=== PATIENT | female | born 1975 | race Caucasian/White ===

== ENCOUNTER 2017-04-18 11:57 | Inpatient (IN) | payer OTHER ==
[~2017-04-18] VITALS: Ht 180.3 cm; Wt 108.8 kg
[~2017-04-18 11:57] MED LIST: DULERA 100 MCG/13 GM IH; FLEXERIL10 MG PO; HYDROCODON-ACE1 EAC7 PO; NAPROSYN500 MG PO; OMEGA-3 PO; PRILOSEC20 MG PO; ULTRAM50 MG PO; VALIUM5 MG PO; ZOFRAN ODT4 MG PO; fish oil PO
[2017-04-18 13:00] LABS: BASOPHIL COUNT 0.1 K/uL (0-0.1); EOSINOPHIL (%) 0.4 % (0-5); EOSINOPHIL COUNT 0.1 K/uL (0-0.3); IMMATURE GRANULOCYTE (%) 0.6 % (0.0-0.7); IMMATURE GRANULOCYTE COUNT 0.1 K/uL; LYMPHOCYTE COUNT 1.8 K/uL (1.0-2.8); MCH 30.6 PG (29.0-34.0); MCHC 33.5 G/DL (30.0-36.0); MCV 91.3 FL (83-99); MEAN PLAT.VOLUME 10.8 uM^3 (9.5-12.4); MONOCYTE COUNT 1.1 K/uL (0-0.8); NEUTROPHIL (%) 82.5 % (45-76); PLATELET COUNT 221 K/uL (156-360); RBC DIS.WIDTH-CV 13.7 % (11.8-14.6); RBC DIS.WIDTH-SD 45.9 % (39-53); RED BLOOD COUNT 5.04 M/uL (3.80-5.20); WHITE BLOOD COUNT 18.2 K/uL (4.1-10.2)
[2017-04-18 13:09] LABS: CHLORIDE 105 mEq/L (99-109); POTASSIUM 4.2 mEq/L (3.7-5.4); SODIUM 136 mEq/L (136-147)
[2017-04-18 13:10] LABS: GLUCOSE 123 mg/dL (70-99)
[2017-04-18 13:12] LABS: ANION GAP 8 MEQ/L (2-14)
[2017-04-18 13:14] LABS: GFR ESTIMATE (CALCULATED) 58 mL/min/
[2017-04-18 13:15] LABS: UREA NITROGEN (BUN) 10 mg/dL (9-23)
[2017-04-18] MEDS ORDERED: PRAVACHOL10 MG PO (15:28)
[2017-04-18] MEDS ORDERED: AMITRIPTYLINE H10 MG PO (15:29)
[2017-04-18] MEDS ORDERED: TRAMADOL HCL50 MG PO (15:29)
[2017-04-18 15:52] LABS: TOTAL BILIRUBIN 0.9 mg/dL (0.0-1.0)
[2017-04-18 15:53] LABS: ALKALINE PHOSPHATASE 121 IU/L (3-129)
[2017-04-18 15:56] LABS: DIRECT BILIRUBIN 0.3 mg/dL (0.0-0.3)
[2017-04-18 15:59] LABS: ADD MIUA? NO; BILIRUBIN NEGATIVE; BLOOD NEGATIVE; COLOR STRAW ((YELLOW)); GLUCOSE (STRIP) NEGATIVE; KETONES NEGATIVE; LEUKOCYTES NEGATIVE; NITRITE NEGATIVE; PROTEIN (STRIP) NEGATIVE; SPECIFIC GRAVITY 1.005 (1.000-1.030); UROBILINOGEN 0.2 MG/DL (0.2-1.0)
[2017-04-18 17:17] LABS: UCUL ADDED? NO
[2017-04-18 20:41] VITALS: BP 124/70
[2017-04-18 20:58] VITALS: BP 124/70
[2017-04-18 21:00] VITALS: BP 100/59
[2017-04-18 22:00] VITALS: BP 113/69
[2017-04-18 22:27] LABS: METH RESISTANT S AUREUS PCR NEGATIVE (NEGATIVE)
[2017-04-18 22:28] LABS: PROBE CHECK PASS; SPECIMEN PROCESSING CONTROL PASS
[2017-04-18 23:00] VITALS: BP 117/66
[2017-04-19] VITALS (14 sets, daily range): BP systolic 84–124; BP diastolic 43–74
[2017-04-19 06:17] LABS: BASOPHIL COUNT 0.1 K/uL (0-0.1); EOSINOPHIL (%) 0.5 % (0-5); EOSINOPHIL COUNT 0.1 K/uL (0-0.3); HEMATOCRIT 36.7 % (36.0-46.0); IMMATURE GRANULOCYTE (%) 0.4 % (0.0-0.7); IMMATURE GRANULOCYTE COUNT 0.1 K/uL; INSTRUMENT ABS NEUTROPHIL CT 8.8 K/uL; LYMPHOCYTE COUNT 3.3 K/uL (1.0-2.8); MCH 31.4 PG (29.0-34.0); MEAN PLAT.VOLUME 10.6 uM^3 (9.5-12.4); MONOCYTE (%) 4.9 % (3-12); MONOCYTE COUNT 0.6 K/uL (0-0.8); NEUTROPHIL COUNT 8.8 K/uL (1.8-6.4); PLATELET COUNT 177 K/uL (156-360); RBC DIS.WIDTH-CV 14.1 % (11.8-14.6); RBC DIS.WIDTH-SD 49.1 % (39-53); WHITE BLOOD COUNT 12.9 K/uL (4.1-10.2)
[2017-04-19 06:18] LABS: MCV 95.3 FL (83-99); RED BLOOD COUNT 3.85 M/uL (3.80-5.20)
[2017-04-19 06:23] LABS: ALKALINE PHOSPHATASE 78 IU/L (3-129); ANION GAP 4 MEQ/L (2-14); CHLORIDE 111 MEQ/L (99-109); GFR ESTIMATE (CALCULATED) > 59 mL/min/; GLUCOSE 93 mg/dL (70-99); MAGNESIUM 1.7 mg/dl (1.3-2.7); POTASSIUM 4.2 MEQ/L (3.7-5.4); SAMPLE HEMOLYSIS CHECK 0; SAMPLE ICTERIC CHECK 0; SAMPLE LIPEMIA CHECK 0; SODIUM 140 MEQ/L (136-147); TOTAL BILIRUBIN 0.9 MG/DL (0.0-1.0); UREA NITROGEN (BUN) 9 mg/dL (9-23)
[2017-04-19 07:27] LABS: ERTH.SED.RATE 24 MM/HR (0-20)
[2017-04-20 07:40] VITALS: BP 145/82
[2017-04-20 10:35] LABS: EOSINOPHIL (%) 1.7 % (0-5); EOSINOPHIL COUNT 0.2 K/uL (0-0.3); HEMATOCRIT 36.5 % (36.0-46.0); IMMATURE GRANULOCYTE (%) 0.7 % (0.0-0.7); IMMATURE GRANULOCYTE COUNT 0.1 K/uL; INSTRUMENT ABS NEUTROPHIL CT 5.5 K/uL; LYMPHOCYTE COUNT 2.5 K/uL (1.0-2.8); MCH 31.1 PG (29.0-34.0); MCHC 33.4 G/DL (30.0-36.0); MCV 93.1 FL (83-99); MEAN PLAT.VOLUME 10.8 uM^3 (9.5-12.4); MONOCYTE (%) 5.8 % (3-12); MONOCYTE COUNT 0.5 K/uL (0-0.8); NEUTROPHIL (%) 62.5 % (45-76); NEUTROPHIL COUNT 5.5 K/uL (1.8-6.4); PLATELET COUNT 177 K/uL (156-360); RBC DIS.WIDTH-CV 13.5 % (11.8-14.6); RBC DIS.WIDTH-SD 46.2 % (39-53); RED BLOOD COUNT 3.92 M/uL (3.80-5.20); WHITE BLOOD COUNT 8.7 K/uL (4.1-10.2)
[2017-04-20 11:00] LABS: ANION GAP 5 MEQ/L (2-14); CHLORIDE 108 MEQ/L (99-109); GFR ESTIMATE (CALCULATED) > 59 mL/min/; GLUCOSE 112 mg/dL (70-99); POTASSIUM 3.9 MEQ/L (3.7-5.4); SAMPLE HEMOLYSIS CHECK 0; SAMPLE ICTERIC CHECK 0; SAMPLE LIPEMIA CHECK 0; SODIUM 140 MEQ/L (136-147); UREA NITROGEN (BUN) 8 mg/dL (9-23)
[2017-04-20 15:25] VITALS: BP 153/80
[2017-04-21] VITALS: BP 111/57
[2017-04-21 06:43] LABS: EOSINOPHIL (%) 2.3 % (0-5); EOSINOPHIL COUNT 0.2 K/uL (0-0.3); HEMATOCRIT 37.9 % (36.0-46.0); IMMATURE GRANULOCYTE (%) 0.4 % (0.0-0.7); INSTRUMENT ABS NEUTROPHIL CT 3.9 K/uL; LYMPHOCYTE COUNT 2.4 K/uL (1.0-2.8); MCHC 33.5 G/DL (30.0-36.0); MCV 92.4 FL (83-99); MEAN PLAT.VOLUME 10.6 uM^3 (9.5-12.4); MONOCYTE (%) 5.8 % (3-12); MONOCYTE COUNT 0.4 K/uL (0-0.8); NEUTROPHIL COUNT 3.9 K/uL (1.8-6.4); PLATELET COUNT 188 K/uL (156-360); RBC DIS.WIDTH-CV 13.4 % (11.8-14.6); RBC DIS.WIDTH-SD 45.7 % (39-53); WHITE BLOOD COUNT 6.9 K/uL (4.1-10.2)
[2017-04-21 07:08] LABS: ANION GAP 8 MEQ/L (2-14); CHLORIDE 106 MEQ/L (99-109); GFR ESTIMATE (CALCULATED) > 59 mL/min/; GLUCOSE 99 mg/dL (70-99); POTASSIUM 3.7 MEQ/L (3.7-5.4); SAMPLE HEMOLYSIS CHECK 0; SAMPLE ICTERIC CHECK 0; SAMPLE LIPEMIA CHECK 0; SODIUM 142 MEQ/L (136-147); UREA NITROGEN (BUN) 10 mg/dL (9-23)
[2017-04-21 08:19] VITALS: BP 103/57
[2017-04-21] MEDS ORDERED: CEPHALEXIN500 MG PO (15:30)
== END 2017-04-21 16:10 | disposition home or self-care (01) | DRG 871 ==
LOC: EME 11:57 → EDOF 14:58 → 5SOUTH 14:58 → ENRESERV 15:03 → CANRESERV 15:03 → EDOF 15:23 → ENRESERV 15:24 → CANRESERV 15:24 → EDOF 16:49 → ENRESERV 16:56 → 4WEST 20:43 → ENRESERV 04-19 08:52 → 5SOUTH 04-19 10:05
PROVIDERS: Internal Medicine; Internal Medicine Critical Care Medicine; Physician Assistant
DX: A41.9 Sepsis, unspecified organism (principal); R65.21 Severe sepsis with septic shock; E87.2 Acidosis; L03.116 Cellulitis of left lower limb; J98.11 Atelectasis; R09.02 Hypoxemia; F17.210 Nicotine dependence, cigarettes, uncomplicated; E78.5 Hyperlipidemia, unspecified; L02.224 Furuncle of groin; Z91.048 Other nonmedicinal substance allergy status; L08.9 Local infection of the skin and subcutaneous tissue, unspecified; N61.1 Abscess of the breast and nipple; R73.03 Prediabetes; Z82.49 Family history of ischemic heart disease and other diseases of the circulatory system; Z87.442 Personal history of urinary calculi; Z88.0 Allergy status to penicillin; Z90.710 Acquired absence of both cervix and uterus; Z88.2 Allergy status to sulfonamides
CPT/HCPCS: 71020; 73590; 80048; 80053; 80076; 80202; 81003; 82533 91; 83605; 83735; 85025; 85025 91; 85610; 85651; 87040; 87070; 87205; 87641; 90686; 93971; 94799; 99281; 99285; J0690; J0696; J1650; J2060; J2270; J2405; J3370; J7030; J7050

== ENCOUNTER → 2017-08-30 | Outpatient (CLI) | payer OTHER ==
[~2017-08-30] MED LIST changes: +AMITRIPTYLINE H10 MG PO; +CEPHALEXIN500 MG PO; +PRAVACHOL10 MG PO; +TRAMADOL HCL50 MG PO
== END | disposition home or self-care (01) ==
LOC: CDC
DX: R00.0 Tachycardia, unspecified (principal); I44.4 Left anterior fascicular block; R94.31 Abnormal electrocardiogram [ECG] [EKG]; M25.532 Pain in left wrist; G56.03 Carpal tunnel syndrome, bilateral upper limbs; F17.210 Nicotine dependence, cigarettes, uncomplicated
CPT/HCPCS: 93000

== ENCOUNTER 2017-11-20 20:44 | Emergency (ER) | payer OTHER ==
[~2017-11-20] VITALS: Ht 180.3 cm; Wt 109.6 kg
[2017-11-20 21:30] LABS: HEMATOCRIT 46.5 % (36.0-46.0); HEMOGLOBIN 16.2 G/DL (11.9-15.5); MCH 31.7 PG (29.0-34.0); MCHC 34.8 G/DL (30.0-36.0); PLATELET COUNT 268 K/uL (156-360); RBC DIS.WIDTH-CV 14.5 % (11.8-14.6); RED BLOOD COUNT 5.11 M/uL (3.80-5.20); WHITE BLOOD COUNT 11.9 K/uL (4.1-10.2)
[2017-11-20 21:57] LABS: ALBUMIN 4.3 G/DL (3.2-4.8); CHLORIDE 103 MEQ/L (99-109); POTASSIUM 3.5 MEQ/L (3.7-5.4); SODIUM 138 MEQ/L (136-147); TOTAL BILIRUBIN 0.6 MG/DL (0.0-1.0)
[2017-11-20 22:01] LABS: QUANTITATIVE HCG < 4.0 MIU/ML
[2017-11-20 22:03] LABS: ALKALINE PHOSPHATASE 79 IU/L (3-129); ALT (GPT) 31 IU/L (3-49); AST (GOT) 22 IU/L (2-34); GFR ESTIMATE (CALCULATED) > 59 mL/min/; GLUCOSE 161 mg/dL (70-99); TOTAL PROTEIN 7.7 G/DL (6.4-8.3); UREA NITROGEN (BUN) 22 mg/dL (9-23)
[2017-11-20 22:09] LABS: BILIRUBIN NEGATIVE; BLOOD NEGATIVE; COLOR YELLOW ((YELLOW)); GLUCOSE (STRIP) NEGATIVE; KETONES NEGATIVE; LEUKOCYTES NEGATIVE; NITRITE NEGATIVE; PROTEIN (STRIP) NEGATIVE; UROBILINOGEN 0.2 MG/DL (0.2-1.0)
[2017-11-20 22:10] LABS: APPEARANCE CLEAR ((CLEAR)); UCUL ADDED? NO
[2017-11-21] MEDS ORDERED: FLOMAX0.4 MG PO (00:51)
[2017-11-21] MEDS ORDERED: NORCO 5/3251 TABLET PO (00:51)
[2017-11-21 01:02] VITALS: BP 138/97
== END 2017-11-21 01:03 | disposition home or self-care (01) ==
LOC: EME 20:44
DX: N13.2 Hydronephrosis with renal and ureteral calculous obstruction (principal); R73.03 Prediabetes; K21.9 Gastro-esophageal reflux disease without esophagitis; J45.909 Unspecified asthma, uncomplicated; G43.909 Migraine, unspecified, not intractable, without status migrainosus; F17.200 Nicotine dependence, unspecified, uncomplicated; Z87.442 Personal history of urinary calculi; Z90.710 Acquired absence of both cervix and uterus; Z98.51 Tubal ligation status; Z88.2 Allergy status to sulfonamides; Z88.0 Allergy status to penicillin; Z91.018 Allergy to other foods; Z91.040 Latex allergy status; Z91.09 Other allergy status, other than to drugs and biological substances
CPT/HCPCS: 74176; 80053; 81003; 84702; 85027; 99281; 99284; J1885